=== PATIENT | female | born 1955 | race Caucasian/White ===

== ENCOUNTER → 2017-09-14 | Outpatient (CLI) | payer OTHER ==
[~2017-09-14] MED LIST: Z.0.NO CURRENT MEDS
--- NOTE | 2017-09-17 08:44 | RSPPFT ---
DATE OF PROCEDURE: 09/14/17 COMMENTS: VOLUMES DYNAMIC: FVC and FEV1 mildly reduced. STATIC: TLC, RV and FRC normal. FLOWS: FEV1% mildly reduced; FEF 25-75 severely reduced. DIFFUSION: Mildly reduced. FLOW VOLUME LOOP: Pattern of variable intrathoracic airways obstruction. IMPRESSION: Mild to moderate obstructive ventilatory defect with reduction in diffusion consistent with emphysema. There is some improvement post-bronchodilator.
== END ==
LOC: HRSP 08:03
PROVIDERS: ATTEND Family Medicine
DX: R06.00 Dyspnea, unspecified (principal)
CPT/HCPCS: 94060; 94726; 94729